=== PATIENT | male | born 1975 | race Caucasian/White ===

== ENCOUNTER 2019-11-01 08:15 | Day surgery (SDC) | payer OTHER ==
[~2019-11-01] VITALS: Ht 167.6 cm; Wt 104.6 kg
[~2019-11-01 08:15] MED LIST: ALLER-CLEAR PO; IBUP800 PO
--- NOTE | 2019-11-01 09:00 | NUR ---
Ambulatory in Day Surgery History, Chart, Medications and Allergies reviewed before start of procedure.Lungs clear T/O to Auscultation. Patient confirms NPO status and agrees with scheduled surgery. Patient reports completing Chlorhexadine shower X2 prior to admission to hospital.CONFIRMED 5 DAY SHOWERS AND NASAL OINTMENT FOR MSSA. NOZYN PER TOTAL JOINT PROTOCOL.Surgical site prepped with 2% Chlorhexidine cloth wipe.
--- NOTE | 2019-11-01 18:03 | NUR ---
SUMMARY WORKED W/ P.T. THIS AFTERNOON, TOLERATED WELL, CURRENTLY ON RECLINER CHAIR, EATING DINNER, REPORTS HAVING FULL SENSATION AND MOVEMENT ON BLE'S, C/O 05/04 PAIN, MEDICATED WITH TORADOL SCHEDULED AND 2 OXYCODONE, BLADDER SCAN THIS AFTERNOON SHOWED 490CC, PT ABLE TO VOID 400CC, DSG ON R KNEE C/D/I, VSS, NO ACUTE CHANGES THIS SHIFT.
[2019-11-02 04:02] LABS: BASOPHILS ABSOLUTE AUTO 0.02 K/mm3 (0.00-0.23); BASOPHILS PERCENT AUTO 0 % (0-2); EOSINOPHILS ABSOLUTE AUTO 0.01 K/mm3 (0.00-0.68); EOSINOPHILS PERCENT AUTO 0 % (0-6); Hematocrit 39.4 % (37.0-53.0); Hemoglobin 12.8 g/dL (13.5-17.5); IMMATURE GRAN ABSOLUTE AUTO 0.03 K/mm3 (0.00-0.10); IMMATURE GRAN PERCENT AUTO 0 % (0-1); LYMPHOCYTES ABSOLUTE AUTO 1.18 K/mm3 (0.84-5.20); LYMPHOCYTES PERCENT AUTO 11 % (21-46); MONOCYTES ABSOLUTE AUTO 0.93 K/mm3 (0.16-1.47); MONOCYTES PERCENT AUTO 9 % (4-13); Mean Corpuscular HGB 29.6 pg (26.0-34.0); Mean Corpuscular HGB Conc 32.5 g/dL (31.5-36.5); Mean Corpuscular Volume 91 fL (80-100); Mean Platelet Volume 10.4 fL (9.1-12.4); NEUTROPHILS ABSOLUTE AUTO 8.22 K/mm3 (1.96-9.15); NEUTROPHILS PERCENT AUTO 79 % (41-73); Platelet Count 208 K/mm3 (150-400); RDW Standard Deviation 43.1 fL (35.1-46.3); Red Blood Cell Count 4.33 M/mm3 (4.30-5.90); White Blood Cell Count 10.39 K/mm3 (4.00-11.30)
[2019-11-02 04:15] LABS: Anion Gap 8 mmol/L (6-16); Blood Urea Nitrogen 14 mg/dL (8-24); Bun/Creatinine Ratio 18.5 (12.0-20.0); CO2, Blood 23 mmol/L (21-32); Calcium, Blood 8.3 mg/dL (8.5-10.1); Chloride, Blood 107 mmol/L (98-108); Creatinine, Blood 0.76 mg/dL (0.60-1.20); Glomerular Filtration Rate >60 (60-); Glucose, Blood 140 mg/dL (70-99); Potassium, Blood 4.1 mmol/L (3.5-5.5); Sodium, Blood 138 mmol/L (136-145)
--- NOTE | 2019-11-02 04:37 | NUR ---
SHIFT SUMMARY POD 1 R TKA [id number], VSS. PT HAS BEEN UP AND AMBULATED, TOLERATED WELL. DRESSING IS CDI. POLAR ORION IN PLACE. MEDICATED FOR PAIN PER EMAR. TOLERATING PO, VOIDING IN URINAL. DENIES NAUSEA OR VOMITING. PT HAS BEEN RESTING IN BED WITH EYES CLOSED DURING SHIFT.
[2019-11-02] MEDS ORDERED: Aspir 8181 MG PO (09:47)
[2019-11-02] MEDS ORDERED: Percocet 5-3251 EACH PO (09:47)
--- NOTE | 2019-11-02 10:18 | NUR ---
PT WAS SENT WITH DRESSING SUPPLIES AND POLAR PAC.
--- NOTE | 2019-11-02 10:18 | NUR ---
DISCHARGE: PT EATING AND DRINKING, VOIDING, PASSING GAS. PT REPORTS HAVING APPR EQUIP AT HOME. PT REPORTS UNDERSTANDING OF DISCHARGE INSTRUCTIONS INCLUDING POLAR PAC AND DRESSING CHANGES. HERE AT DISCHARGE. PT CLEARED BY THERAPY TO GO HOME. PT REPORTS PAIN WELL CONTROLLED ON PO PAIN MEDICATION.
== END 2019-11-02 10:23 | disposition home or self-care (01) ==
LOC: ORSCMMR 08:15 → ORD 09:15 → ORSCMMR 09:45 → SURS 13:45 → ORSCMMR 11-02 10:23
PROVIDERS: Orthopaedic Surgery
PROC: 0SRC0JA Replacement of Right Knee Joint with Synthetic Substitute, Uncemented, Open Approach (ICD-10-PCS; principal; 2019-11-01 09:45)
DX: M17.11 Unilateral primary osteoarthritis, right knee (principal); E66.01 Morbid (severe) obesity due to excess calories; Z68.37 Body mass index [BMI] 37.0-37.9, adult; Z01.818 Encounter for other preprocedural examination
CPT/HCPCS: 36415; 73560-RT; 80048; 85025; 86850; 86900; 86901; 88300; 97110; 97116; 97162; C1776; J0171; J0735; J1100; J1885; J2250; J2370; J2405; J2704; J2765; J2795; J3010; J3370; J7120

== ENCOUNTER 2024-05-09 13:15 | Emergency (ER) | payer OTHER ==
[~2024-05-09] VITALS: Ht 167.6 cm; Wt 102.1 kg
[~2024-05-09 13:15] MED LIST changes: +Aspir 8181 MG PO; +Percocet 5-3251 EACH PO
[2024-05-09 13:24] VITALS: BP 152/115
[2024-05-09 13:57] LABS: BASOPHILS ABSOLUTE AUTO 0.03 K/mm3 (0.00-0.23); BASOPHILS PERCENT AUTO 0 % (0-2); EOSINOPHILS ABSOLUTE AUTO 0.17 K/mm3 (0.00-0.68); EOSINOPHILS PERCENT AUTO 2 % (0-6); Hematocrit 47.5 % (37.0-53.0); Hemoglobin 16.2 g/dL (13.5-17.5); IMMATURE GRAN ABSOLUTE AUTO 0.02 K/mm3 (0.00-0.10); IMMATURE GRAN PERCENT AUTO 0 % (0-1); LYMPHOCYTES ABSOLUTE AUTO 1.43 K/mm3 (0.84-5.20); LYMPHOCYTES PERCENT AUTO 20 % (21-46); MONOCYTES ABSOLUTE AUTO 0.78 K/mm3 (0.16-1.47); MONOCYTES PERCENT AUTO 11 % (4-13); Mean Corpuscular HGB 31.1 pg (26.0-34.0); Mean Corpuscular HGB Conc 34.1 g/dL (31.5-36.5); Mean Corpuscular Volume 91 fL (80-100); Mean Platelet Volume 10.1 fL (9.1-12.4); NEUTROPHILS ABSOLUTE AUTO 4.75 K/mm3 (1.96-9.15); NEUTROPHILS PERCENT AUTO 66 % (41-73); Platelet Count 226 K/mm3 (150-400); RDW Coefficient Variation 13.6 % (11.7-14.2); RDW Standard Deviation 46.1 fL (35.1-46.3); Red Blood Cell Count 5.21 M/mm3 (4.30-5.90); White Blood Cell Count 7.18 K/mm3 (4.00-11.30)
[2024-05-09 14:22] LABS: Albumin, Blood 3.6 g/dL (3.4-5.0); Albumin/Globulin Ratio 0.9 (0.8-1.8); Bilirubin, Total 0.5 mg/dL (0.1-1.0); Bun/Creatinine Ratio 18.1 (12.0-20.0); Calcium, Blood 8.5 mg/dL (8.5-10.1); Creatinine, Blood 0.66 mg/dL (0.60-1.20); Total Protein, Blood 7.6 g/dL (6.4-8.2)
== END 2024-05-09 18:04 | disposition home or self-care (01) ==
LOC: ER 13:15
PROVIDERS: Physician Assistant
DX: K21.9 Gastro-esophageal reflux disease without esophagitis (principal); R19.7 Diarrhea, unspecified; R42 Dizziness and giddiness; Z88.0 Allergy status to penicillin; Z91.030 Bee allergy status; Z79.82 Long term (current) use of aspirin
CPT/HCPCS: 71046; 80053; 83690; 84484; 85025; 93005; 93010; 99285-25

== ENCOUNTER 2024-09-05 08:29 | Day surgery (SDC) | payer OTHER ==
[~2024-09-05] VITALS: Ht 167.6 cm; Wt 110.0 kg
[2024-09-05] MEDS ORDERED: NS 500 ML IV ONE (08:56)
[2024-09-05] MEDS ORDERED: CeFAZolin Sodium 2,000 MG VIAL ONE (08:58)
[2024-09-05] MEDS ORDERED: NS 50 ML IV ONE (08:58)
[2024-09-05 10:36] VITALS: BP 147/98
== END 2024-09-05 10:48 | disposition home or self-care (01) ==
LOC: ORSCSDS 08:29
PROVIDERS: Orthopaedic Surgery
PROC: 01N50ZZ Release Median Nerve, Open Approach (ICD-10-PCS; principal; 2024-09-05 10:25)
DX: G56.03 Carpal tunnel syndrome, bilateral upper limbs (principal); E66.01 Morbid (severe) obesity due to excess calories; Z68.36 Body mass index [BMI] 36.0-36.9, adult
CPT/HCPCS: J0690

== ENCOUNTER 2025-02-06 10:19 | Day surgery (SDC) | payer OTHER ==
[~2025-02-06] VITALS: Ht 167.6 cm; Wt 101.7 kg
[2025-02-06] MEDS ORDERED: CeFAZolin Sodium 2,000 MG VIAL ONE (10:31)
[2025-02-06] MEDS ORDERED: NS 50 ML IV ONE (10:33)
[2025-02-06] MEDS ORDERED: NS 500 ML IV ONE (11:11)
--- NOTE | 2025-02-06 11:56 | NUR ---
02/06/25 1156 PAULA WHITING 1146 T/O FOR LEFT CARPAL BLK 10ML 1% LIDOCAINE W/ EPI 1:100, 000 ST: 1147 END: 1148
--- NOTE | 2025-02-06 12:30 | NUR ---
02/06/25 1230 Siddharth Rivera PLACED IN PRE-OP.
[2025-02-06 12:32] VITALS: BP 123/88
== END 2025-02-06 13:05 | disposition home or self-care (01) ==
LOC: ORSCSDS 10:19
PROVIDERS: Orthopaedic Surgery
PROC: 01N50ZZ Release Median Nerve, Open Approach (ICD-10-PCS; principal; 2025-02-06 11:45)
DX: G56.02 Carpal tunnel syndrome, left upper limb (principal)
CPT/HCPCS: J0690

== ENCOUNTER 2025-05-24 08:48 | Day surgery (SDC) | payer OTHER ==
[2025-05-03 14:15] VITALS: BP 142/96
[~2025-05-24] VITALS: Ht 167.6 cm; Wt 103.3 kg
[2025-05-24] VITALS (11 sets, daily range): BP systolic 109–143; BP diastolic 73–94
[~2025-05-24 08:48] MED LIST changes: +CeFAZolin Sodium 2,000 MG in NS 100 ML IV SCH; +Chlorhexidine Mouth Care 15 ML UDC MT SCH; +Ropivacaine 0.5% HCl/Pf 123.125 MG,EPINEPHrine HCL 0.25 MG,Ketorolac Tromethamine 15 MG... INFIL SCH; +Tranexamic Acid 100 ML IV SCH
[2025-05-24] MEDS ORDERED: FentaNYL Citrate 50 MCG/ML 2 ML Injection ONE (08:58)
[2025-05-24] MEDS ORDERED: Midazolam HCl 1MG / ML 2ML Vial ONE ×2 (08:58→11:18)
--- NOTE | 2025-05-24 10:22 | NUR ---
PRE OP NOTE PT A&OX4, BREATHING RA, CALM, NO COMPLAINTS. Ambulatory in Day Surgery Patient confirms NPO status and agrees with scheduled surgery. Pre-Op teaching done. Pt verbalizes understanding. History, Chart, Medications and Allergies reviewed before start of procedure.
[2025-05-24] MEDS ORDERED: Magnesium Hydroxide Conc 10 ML UDC PO PRN (10:30)
[2025-05-24] MEDS ORDERED: HYDROmorphone HCl/Pf 1MG SYR IV PRN ×3 (10:30→11:45)
[2025-05-24] MEDS ORDERED: Metoclopramide HCl 5MG / ML 2ML Vial IV PRN (10:30)
[2025-05-24] MEDS ORDERED: Ondansetron HCl 2 MG / ML 2ML Vial IV PRN ×2 (10:35→11:40)
[2025-05-24] MEDS ORDERED: FentaNYL Citrate 50 MCG/ML 2 ML Injection IV PRN ×2 (11:40)
[2025-05-24] MEDS ORDERED: Ketorolac Tromethamine 15mg Vial IV SCH (12:00)
[2025-05-24] MEDS ORDERED: Ondansetron HCl 2 MG / ML 2ML Vial ONE (13:49)
[2025-05-24] MEDS ORDERED: Dexamethasone Sod Phos 10 MG/ML 1ML VIAL ONE (13:49)
[2025-05-24] MEDS ORDERED: Ketorolac Tromethamine 30mg Vial ONE (14:24)
--- NOTE | 2025-05-24 15:35 | NUR ---
POST-OP TO ROOM 223 @1500 AOX4, DENIES PAIN, N/V. LUNG SOUNDS CLEAR. SIPPING ON CL. APOUSE IN ROOM AND VSS.
--- NOTE | 2025-05-24 17:34 | NUR ---
SHIFT SUMMARY PATIENT IS POD0 L TKA. DRESSINGIS C/D/I. AOX4, ABLE TO GET TO CHAIR SBA GB, FWW. AWAITING FIRST POST-OP VOID. PAIN IS MINIMAL AND MEDICATED OER EMAR. TOLERATING PO INTAKE. PLAN TO GO HOME TONIGHT PENDING VOID. VSS.
[2025-05-24] MEDS ORDERED: CeFAZolin Sodium 2,000 MG in NS 100 ML IV SCH (21:15)
--- NOTE | 2025-05-24 23:37 | NUR ---
2049- PT VOIDED 50 ML CONC URINE. DID BLADDER SCAN AND LESS THAN 5 IN BLADDER. VERBAL AND WRITEEN D/C INST GIVEN TO PT AND SIGNIFICANT OTHER. PT VERBALIZED UNDERSTANDING AND HAS NO FURTHER QUESTIONS OR CONCERNS. IV DC'D WITH CATH INTACT. SIGNED D/C INST. WC OUT TO ER ENTRANCE. GOT CAR DRIVING PT HOME.
[2025-05-25] MEDS ORDERED: Trimethoprim/Sulfamethoxazole DS Tab PO SCH (09:00)
== END 2025-05-24 20:50 | disposition home or self-care (01) ==
LOC: ORSCMMR 08:48 → ORD 10:45 → ORSCMMR 11:00 → SURS 15:05 → ORSCMMR 20:50
PROVIDERS: Orthopaedic Surgery
PROC: 0SRD0JA Replacement of Left Knee Joint with Synthetic Substitute, Uncemented, Open Approach (ICD-10-PCS; principal; 2025-05-24 11:00)
DX: M17.12 Unilateral primary osteoarthritis, left knee (principal); Z96.651 Presence of right artificial knee joint; E66.9 Obesity, unspecified; Z68.36 Body mass index [BMI] 36.0-36.9, adult
CPT/HCPCS: 73560-LT; A9270; C1713; C1776; J0165; J0690; J0735; J1100; J1885; J2250; J2405; J2704; J2795; J3010; J3373; J7050; J7120